=== PATIENT | female | born 2000 | race African-American/Black ===

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

== ENCOUNTER 2021-01-24 19:38 | Emergency (ER) | payer MEDICAID ==
[~2021-01-24] VITALS: Ht 170.2 cm; Wt 54.0 kg
[2021-01-24 19:45] VITALS: BP 137/79
== END 2021-01-24 20:17 | disposition left against medical advice (07) ==
LOC: ER 20:14
DX: N93.9 Abnormal uterine and vaginal bleeding, unspecified (principal); Z53.21 Procedure and treatment not carried out due to patient leaving prior to being seen by health care provider